=== PATIENT | female | born 1960 | race Caucasian/White ===

== ENCOUNTER 2020-08-13 09:34 | Outpatient (REF) | payer SELFPAY ==
[2020-08-13 14:48] LABS: Anion Gap 7.7 mmol/L (3-11); BUN 25 mg/dL (7-18); CO2 27.3 mmol/L (21.0-32.0); CREATININE 0.9 mg/dL (0.55-1.02); Calcium 9.7 mg/dL (8.5-10.1); Chloride 107 mmol/L (98-107); Cholesterol 253 mg/dL (<200); Glucose 106 mg/dL (74-106); HDL Cholesterol 38 mg/dL (40-60); Potassium 4.8 mmol/L (3.5-5.1); Sodium 142 mmol/L (136-145); Triglyceride 408 mg/dL (<150)
[2020-08-13 15:02] LABS: LDL CHOLESTEROL 129 mg/dL (<100)
== END 2020-08-13 09:35 | disposition home or self-care (01) ==
LOC: NCHCN 09:34
PROVIDERS: PCP Internal Medicine; Visit Provider Internal Medicine
DX: Z00.00 Encounter for general adult medical examination without abnormal findings (principal)
CPT/HCPCS: 80048; 80061; 83721

== ENCOUNTER 2021-02-12 13:53 | Outpatient (REF) | payer OTHER, SELFPAY ==
[2021-02-12 14:45] LABS: Hemoglobin A1C 5.5 % (<5.7)
[2021-02-12 14:53] LABS: Calculated LDL 134 mg/dL (<100); Cholesterol 207 mg/dL (<200); Glucose 96 mg/dL (74-106); HDL Cholesterol 50 mg/dL (40-60); Triglyceride 117 mg/dL (<150)
== END 2021-02-12 13:54 | disposition home or self-care (01) ==
LOC: NCHCN 13:53
PROVIDERS: PCP Internal Medicine; Visit Provider Internal Medicine
DX: R73.01 Impaired fasting glucose (principal); E78.5 Hyperlipidemia, unspecified
CPT/HCPCS: 80061; 82947; 83036

== ENCOUNTER 2022-02-12 08:28 | Outpatient (REF) | payer OTHER, SELFPAY ==
[2022-02-12 17:47] LABS: ALT 90 U/L (14-59); AST 42 U/L (15-37); Albumin 3.6 g/dL (3.4-5.0); Alkaline Phosphatase 113 U/L (46-116); Anion Gap 8.8 mmol/L (3-11); BUN 27 mg/dL (7-18); Bilirubin, Total 0.5 mg/dL (0.2-1.0); CO2 25.2 mmol/L (21.0-32.0); Calcium 8.8 mg/dL (8.5-10.1); Calculated LDL 129 mg/dL (<100); Chloride 107 mmol/L (98-107); Cholesterol 199 mg/dL (<200); Estimated GFR 56.75 (mL/min/1.73m2); Glucose 100 mg/dL (74-106); HDL Cholesterol 47 mg/dL (40-60); Potassium 4.5 mmol/L (3.5-5.1); Sodium 141 mmol/L (136-145); Total Protein 6.7 g/dL (6.4-8.2); Triglyceride 119 mg/dL (<150)
== END 2022-02-12 08:29 | disposition home or self-care (01) ==
LOC: NCHCN 08:28
PROVIDERS: PCP Internal Medicine; Visit Provider Internal Medicine
DX: E66.9 Obesity, unspecified (principal); Z00.00 Encounter for general adult medical examination without abnormal findings; Z13.220 Encounter for screening for lipoid disorders
CPT/HCPCS: 80053; 80061

== ENCOUNTER 2022-04-02 09:01 | Outpatient (REF) | payer OTHER, SELFPAY ==
[2022-04-02 16:20] LABS: ALT 88 U/L (14-59); AST 37 U/L (15-37); Albumin 3.7 g/dL (3.4-5.0); Alkaline Phosphatase 107 U/L (46-116); Bilirubin, Total 0.5 mg/dL (0.2-1.0); Ferritin 104 ng/mL (8-252); Total Protein 6.9 g/dL (6.4-8.2)
[2022-04-02 16:32] LABS: Bilirubin, Direct 0.1 mg/dL (0.0-0.2)
[2022-04-02 16:54] LABS: HCT 41.2 % (36.0-46.0); HGB 13.8 g/dL (11.2-15.7); MCH 30.2 pg (27.0-33.0); MCHC 33.5 % (32.0-36.0); MCV 90 fL (80-95); MPV 10.2 fL (8.0-11.0); Platelet Count 216 10^3/uL (130-400); RBC 4.57 10^6/uL (3.93-5.22); RDW 12.1 % (11.7-14.6); RDW-SD 39.8 fL; WBC 5.27 10^3/uL (4.4-10.8)
[2022-04-03 08:21] LABS: HBs Antibody, Quant <3.1 mIU/mL (See Note); Hepatitis B Surface Ab Negative (See Note)
[2022-04-03 09:05] LABS: Hepatitis C Ab w Rflx HCV PCR Negative (Negative)
[2022-04-03 10:12] LABS: Hep A Total Ab w Rflx IgM Positive (Negative)
[2022-04-03 11:15] LABS: Hep A Antibody IgM Negative (Negative)
[2022-04-03 23:28] LABS: Hepatitis Be Antigen Negative (Negative)
== END 2022-04-02 09:02 | disposition home or self-care (01) ==
LOC: NCHCN 09:01
PROVIDERS: PCP Internal Medicine; Visit Provider Internal Medicine
DX: R74.01 Elevation of levels of liver transaminase levels (principal); Z11.59 Encounter for screening for other viral diseases
CPT/HCPCS: 80076; 85027; 86706; 86709; 86803; 82728; 87350

== ENCOUNTER 2022-06-24 18:06 | Outpatient (REF) | payer OTHER, SELFPAY ==
[2022-06-25 13:56] LABS: ANA Interpretation Negative (Negative)
[2022-06-25 21:07] LABS: Mitochondrial Ab, M2 <0.1 U
[2022-06-26 20:42] LABS: Liver/Kidney Microsome Type 1 <5.0 U
[2022-06-27 14:22] LABS: Sm (Smith) Ab, IgG 0.9 Units (<20.0)
== END 2022-06-24 18:07 | disposition home or self-care (01) ==
LOC: NCHCN 18:06
PROVIDERS: PCP Internal Medicine; Visit Provider Internal Medicine
DX: R74.01 Elevation of levels of liver transaminase levels (principal)
CPT/HCPCS: 83516; 86038; 86235; 86255

== ENCOUNTER 2023-07-20 15:01 | Outpatient (REF) | payer OTHER, SELFPAY ==
[2023-07-20 14:42] LABS: HCT 41.7 % (36.0-46.0); HGB 13.8 g/dL (11.2-15.7); MCH 31.2 pg (27.0-33.0); MCHC 33.1 % (32.0-36.0); MCV 94 fL (80-95); Platelet Count 237 10^3/uL (130-400); RBC 4.43 10^6/uL (3.93-5.22); RDW 12.3 % (11.7-14.6); RDW-SD 42.7 fL; WBC 6.06 10^3/uL (4.4-10.8)
[2023-07-20 14:57] LABS: ALT 55 U/L (14-59); AST 30 U/L (15-37); Albumin 3.6 g/dL (3.4-5.0); Alkaline Phosphatase 90 U/L (46-116); BUN 18 mg/dL (7-18); Bilirubin, Total 0.7 mg/dL (0.2-1.0); Calcium 9.2 mg/dL (8.5-10.1); Calculated LDL 137 mg/dL (<100); Chloride 106 mmol/L (98-107); Cholesterol 225 mg/dL (<200); Estimated GFR 64.49 (mL/min/1.73m2); Glucose 97 mg/dL (74-106); HDL Cholesterol 55 mg/dL (40-60); Potassium 4.2 mmol/L (3.5-5.1); Sodium 139 mmol/L (136-145); Triglyceride 166 mg/dL (<150)
[2023-07-21 09:51] LABS: Alpha 1 Antitrypsin,Serum 100 mg/dL (90-200)
[2023-07-22 09:20] LABS: Ceruloplasmin 22.2 mg/dL
== END 2023-07-20 15:02 | disposition home or self-care (01) ==
LOC: NCHCN 15:01
PROVIDERS: PCP Internal Medicine; Visit Provider Internal Medicine
DX: R94.5 Abnormal results of liver function studies (principal)
CPT/HCPCS: 80053; 80061; 82390; 85027; 82103

== ENCOUNTER 2023-07-22 15:43 | Outpatient (REF) | payer OTHER, SELFPAY ==
[2023-07-22 21:23] LABS: TSH (W/Ref FT4) 2.07 uIU/mL (0.36-3.74)
== END 2023-07-22 15:44 | disposition home or self-care (01) ==
LOC: NCHCN 15:43
PROVIDERS: PCP Internal Medicine; Visit Provider Internal Medicine
DX: R74.01 Elevation of levels of liver transaminase levels (principal)
CPT/HCPCS: 84443

== ENCOUNTER 2024-02-23 15:11 | Outpatient (REF) | payer OTHER, SELFPAY ==
[2024-02-23 17:42] LABS: ALT 54 U/L (14-59); AST 36 U/L (15-37); Albumin 4.1 g/dL (3.4-5.0); Alkaline Phosphatase 89 U/L (46-116); Anion Gap 10.3 mmol/L (3-11); BUN 16 mg/dL (7-18); Bilirubin, Total 0.54 mg/dL (0.2-1.0); CO2 23.7 mmol/L (21.0-32.0); CREATININE 0.9 mg/dL (0.55-1.02); Calcium 9.4 mg/dL (8.5-10.1); Chloride 105 mmol/L (98-107); Creatine Kinase 201 U/L (26-192); Estimated GFR 72.73 (mL/min/1.73m2); Glucose 94 mg/dL (74-106); LDH 253 U/L (81-234); Potassium 4.4 mmol/L (3.5-5.1); Sodium 139 mmol/L (136-145); Total Protein 7.3 g/dL (6.4-8.2)
== END 2024-02-23 15:12 | disposition home or self-care (01) ==
LOC: NCHCN 15:11
PROVIDERS: PCP Internal Medicine; Visit Provider Physician Assistant
DX: M79.18 Myalgia, other site (principal)
CPT/HCPCS: 80053; 82550; 83615

== ENCOUNTER 2024-03-01 17:31 | Outpatient (REF) | payer OTHER, SELFPAY ==
[2024-03-01 15:14] LABS: ESR 5 mm/hr (0-30)
[2024-03-01 15:46] LABS: C-Reactive Protein < 0.50 mg/dL (<or=0.5)
[2024-03-02 15:17] LABS: ANA Interpretation Negative (Negative)
== END 2024-03-01 17:32 | disposition home or self-care (01) ==
LOC: NCHCN 17:31
PROVIDERS: PCP Internal Medicine; Visit Provider Physician Assistant
DX: M62.81 Muscle weakness (generalized) (principal)
CPT/HCPCS: 85652; 86038; 86140

== ENCOUNTER 2024-07-20 08:25 | Outpatient (REF) | payer OTHER, SELFPAY ==
[2024-07-20 14:27] LABS: HCT 44.8 % (36.0-46.0); HGB 14.4 g/dL (11.2-15.7); MCH 30.4 pg (27.0-33.0); MCHC 32.1 % (32.0-36.0); MCV 95 fL (80-95); MPV 10.6 fL (8.0-11.0); Platelet Count 243 10^3/uL (130-400); RBC 4.74 10^6/uL (3.93-5.22); RDW-SD 41.6 fL; WBC 5.19 10^3/uL (4.4-10.8)
[2024-07-20 14:46] LABS: ALT 25 U/L (14-59); AST 23 U/L (15-37); Alkaline Phosphatase 86 U/L (46-116); Anion Gap 7.3 mmol/L (3-11); BUN 18 mg/dL (7-18); Bilirubin, Total 0.55 mg/dL (0.2-1.0); CO2 28.7 mmol/L (21.0-32.0); CREATININE 0.9 mg/dL (0.55-1.02); Calcium 9.9 mg/dL (8.5-10.1); Calculated LDL 155 mg/dL (<100); Chloride 108 mmol/L (98-107); Cholesterol 255 mg/dL (<200); Estimated GFR 72.73 (mL/min/1.73m2); Glucose 98 mg/dL (74-106); HDL Cholesterol 62 mg/dL (40-60); Potassium 4.9 mmol/L (3.5-5.1); Sodium 144 mmol/L (136-145); Total Protein 7.6 g/dL (6.4-8.2); Triglyceride 191 mg/dL (<150)
[2024-07-20 14:47] LABS: Hemoglobin A1C 5.4 % (<5.7)
== END 2024-07-20 08:26 | disposition home or self-care (01) ==
LOC: NCHCN 08:25
PROVIDERS: PCP Internal Medicine; Visit Provider Internal Medicine
DX: R74.01 Elevation of levels of liver transaminase levels (principal); E78.5 Hyperlipidemia, unspecified; R73.01 Impaired fasting glucose
CPT/HCPCS: 80053; 80061; 85027; 83036

== ENCOUNTER 2024-07-27 13:49 | Outpatient (REF) | payer OTHER, SELFPAY ==
--- NOTE | 2024-07-27 09:00 | PAPFT_PTH ---
PATIENT: Swetha Harrison LOC: [facility]#:[id number] AGE/SX: 63/F ROOM: RE07/27/[address]: Erin Bui : 1960 BED: DIS: 07/27/2024 SPEC #: [id number] RECD: 07/27/24 17:10 STATUS: SARTHAK REQ #: [id number] REBECCA: 07/27/24 09:[address]: Erin Bui DEPT: [facility] Cytology RECD BY: Teresa Aguilera ENTERED: 07/27/24 17:10 SP TYPE: PAPFT OTHR DR: Len Tejeda Tissues: 1 - CX/ENDOCX FOR PAP SMEARS Procedures: PAP THIN PREP/[facility] Screening HPV DNA PROBE Comments: [id number] (HPV 16 & 18/45)
== END 2024-07-27 13:50 | disposition home or self-care (01) ==
LOC: NCHCN 13:49
PROVIDERS: PCP Internal Medicine; Visit Provider Internal Medicine
DX: Z11.51 Encounter for screening for human papillomavirus (HPV) (principal); Z01.419 Encounter for gynecological examination (general) (routine) without abnormal findings
CPT/HCPCS: 88142; 87624